=== PATIENT | female | born 1935 | race Caucasian/White ===

== ENCOUNTER 2017-12-09 20:05 | Emergency (ER) | payer MEDICARE, BC ==
[2017-12-09] MEDS ORDERED: Sodium Chloride 0.9% 1,000 ML IV ONE (20:35)
[2017-12-09] MEDS ORDERED: Sodium Chloride 0.9% 10 ML Syringe FLUSH PRN (20:44)
--- NOTE | 2017-12-10 04:02 | ER ---
DATE SEEN: 12/09/2017 REASON FOR VISIT: Renal failure. HISTORY OF PRESENT ILLNESS: This is an 82-year-old female who came to the walk- in clinic with complaints of fatigue, decreased appetite. Had a BMP that showed a creatinine of 2.9, her baseline is usually 1.4. She had one episode of nausea, but has otherwise not been eating or drinking well. REVIEW OF SYSTEMS: No fever or chills. No cough or cold symptoms. No chest pain. PAST MEDICAL HISTORY: Hypertension. MEDICATIONS: Reviewed. She is on Benicar. ALLERGIES: Reviewed. PHYSICAL EXAMINATION: VITAL SIGNS: Blood pressure is normal, pulse is 81, temperature 97.6. ENT: Negative. CHEST: Clear. SKIN: Mild dryness. EXTREMITIES: No edema. LAB STUDIES: Sodium is 133. After the 1 L of normal saline, her creatinine came down to 2.9. FINAL IMPRESSION: 1. Acute renal failure. 2. Hypertension. PLAN: One liter of normal saline was given. I discontinued Benicar. I advised her to come to the clinic, drink fluids daily, and repeat a basic profile on Monday morning with the PCP. TIME SEEN: 2100 hours. /[id number] DHAVAL/ARIC
== END 2017-12-09 22:20 | disposition home or self-care (01) ==
LOC: FB.ED 20:05
DX: N17.9 Acute kidney failure, unspecified (principal); I10 Essential (primary) hypertension
CPT/HCPCS: 36415; 80048; 81001; 82570; 84300; 84443; 85018; 99282; J7040; J7050; 99203; 99283; J7030

== ENCOUNTER 2024-05-17 17:35 | Observation (INO) | payer MEDICARE, BC ==
[2024-05-17] MEDS: amLODIPine 5 MG Tab PO ONE (19:30)
[2024-05-17 19:35] LABS: APPEARANCE,URINE CLEAR (CLEAR); BACTERIA,URINE FEW (NS); BILIRUBIN,URINE NEGATIVE (NEGATIVE); COLOR,URINE YELLOW (YELLOW); GLUCOSE,URINE NORMAL (NORMAL); KETONES,URINE NEGATIVE (NEGATIVE); LEUKOCYTE ESTERASE,URINE NEGATIVE (NEGATIVE); NITRITE,URINE NEGATIVE (NEGATIVE); OCCULT BLOOD,URINE NEGATIVE (NEGATIVE); PROTEIN,URINE NEGATIVE (NEGATIVE); RBC,URINE 0-5 (0-5); SQUAMOUS EPITHELIAL CELLS,UR FEW (NS,R,O); UROBILINOGEN,URINE NORMAL (NEGATIVE); WBC,URINE 0-5 (0-5)
[2024-05-17 19:38] LABS: BASOPHILS PERCENT AUTO 0.3 % (0.2-1.5); EOSINOPHILS ABSOLUTE AUTO 0.1 x10-3/uL (0.0-0.8); EOSINOPHILS PERCENT AUTO 1.2 % (0.6-8.1); HEMATOCRIT 40.3 % (34.2-48.2); HEMOGLOBIN 13.3 g/dL (11.4-15.5); LYMPHOCYTES ABSOLUTE AUTO 0.9 x10-3/uL (1.0-4.4); LYMPHOCYTES PERCENT AUTO 11.7 % (18.4-52.1); MEAN CORPUSCULAR HEMOGLOBIN 28.2 pg (23.9-33.9); MEAN CORPUSCULAR HGB CONC 32.9 g/dL (31.9-34.8); MEAN CORPUSCULAR VOLUME 85.6 fL (76.7-100.5); MEAN PLATELET VOLUME 7.4 fL (7.1-12.4); MONOCYTES ABSOLUTE AUTO 0.5 x10-3/uL (0.3-1.0); MONOCYTES PERCENT AUTO 6.5 % (4.4-15.7); NEUTROPHILS ABSOLUTE AUTO 6.5 x10-3/uL (1.5-6.3); NEUTROPHILS PERCENT AUTO 80.3 % (30.8-76.2); PLATELET COUNT,PLT 391 x10(3)uL (151-488); RED BLOOD CELL COUNT 4.71 x10(6)uL (3.60-5.20); RED CELL DISTRIBUTION WIDTH 14.3 % (12.3-16.5); WHITE BLOOD CELL COUNT,WBC 8.1 x10-3/uL (3.0-10.3)
[2024-05-17 19:40] LABS: BLOOD UREA NITROGEN,BUN 20 mg/dL (7-18); BUN/CREATININE RATIO 18.2 (9-20); CARBON DIOXIDE,CO2 28 mmol/L (21-32); CHLORIDE,CL 100 mmol/L (100-110); CREATININE 1.1 mg/dL (0.55-1.02); ESTIMATED GFR 48 mL/min (>60); GLUCOSE RANDOM 108 mg/dL (80-116); POTASSIUM,K 4.1 mmol/L (3.5-5.3); SODIUM,NA 138 mmol/L (135-145)
[2024-05-17 19:46] LABS: ALANINE AMINOTRANSFERASE,ALT 24 U/L (12-36); ALBUMIN 3.8 g/dL (2.9-4.5); ALKALINE PHOSPHATASE 91 IU/L (56-112); ASPARTATE AMNIOTRANSFERASE,AST 23 IU/L (5-25); BILIRUBIN TOTAL 0.3 mg/dL (0.1-1.3); PROTEIN TOTAL,TP 7.7 g/dL (6.0-8.0)
[2024-05-18] MEDS: hydrALAZINE 25 MG Tab PO SCH (16:30)
== END 2024-05-18 16:55 | disposition home or self-care (01) ==
LOC: FB.ED 17:35 → FB.MS 19:58
PROVIDERS: ADMIT Family Medicine; ATTEND Internal Medicine
DX: I16.0 Hypertensive urgency (principal); F03.B4 Unspecified dementia, moderate, with anxiety; I10 Essential (primary) hypertension; F41.9 Anxiety disorder, unspecified; F32.A Depression, unspecified; Z79.899 Other long term (current) drug therapy
CPT/HCPCS: 36415; 80053; 81001; 85025; 93005; 93010; 99285; A9270; G0378; 99223; 99238

== ENCOUNTER 2024-05-20 15:17 | Inpatient (IN) | payer MEDICARE, BC ==
[2024-05-20] MEDS ORDERED: Acetaminophen 325 MG Tab PO PRN (17:01)
[2024-05-20] MEDS ORDERED: Acetaminophen 650 MG Supp RECTAL PRN (17:01)
[2024-05-20 17:29] LABS: BASOPHILS PERCENT AUTO 0.4 % (0.2-1.5); EOSINOPHILS ABSOLUTE AUTO 0.1 x10-3/uL (0.0-0.8); EOSINOPHILS PERCENT AUTO 0.7 % (0.6-8.1); HEMOGLOBIN 13.4 g/dL (11.4-15.5); LYMPHOCYTES ABSOLUTE AUTO 0.9 x10-3/uL (1.0-4.4); LYMPHOCYTES PERCENT AUTO 11.7 % (18.4-52.1); MEAN CORPUSCULAR HEMOGLOBIN 27.6 pg (23.9-33.9); MEAN CORPUSCULAR HGB CONC 32.6 g/dL (31.9-34.8); MEAN CORPUSCULAR VOLUME 84.7 fL (76.7-100.5); MEAN PLATELET VOLUME 7.3 fL (7.1-12.4); MONOCYTES ABSOLUTE AUTO 0.4 x10-3/uL (0.3-1.0); MONOCYTES PERCENT AUTO 5.3 % (4.4-15.7); NEUTROPHILS ABSOLUTE AUTO 6.4 x10-3/uL (1.5-6.3); NEUTROPHILS PERCENT AUTO 81.9 % (30.8-76.2); PLATELET COUNT,PLT 384 x10(3)uL (151-488); RED BLOOD CELL COUNT 4.84 x10(6)uL (3.60-5.20); RED CELL DISTRIBUTION WIDTH 14.2 % (12.3-16.5); WHITE BLOOD CELL COUNT,WBC 7.8 x10-3/uL (3.0-10.3)
[2024-05-20 17:30] LABS: BLOOD UREA NITROGEN,BUN 22 mg/dL (7-18); CALCIUM 9.1 mg/dL (8.6-10.2); CARBON DIOXIDE,CO2 29 mmol/L (21-32); CHLORIDE,CL 98 mmol/L (100-110); EST CRCL DRUG DOSING (CG) 27.39 mL/min; ESTIMATED GFR 54 mL/min (>60); GLUCOSE RANDOM 130 mg/dL (80-116); SODIUM,NA 135 mmol/L (135-145)
[2024-05-20] MEDS: amLODIPine 5 MG Tab PO SCH (17:42)
[2024-05-20] MEDS: Heparin Sodium 5,000 Units/ML Vial SUBCUT SCH (17:54)
[2024-05-20] MEDS: QUEtiapine 25 MG Tab PO PRN (21:27)
[2024-05-21] MEDS: Calcium Carbonate 500 MG Tablet PO SCH (09:49)
[2024-05-21] MEDS: Heparin Sodium 5,000 Units/ML Vial SUBCUT SCH (09:55)
[2024-05-21] MEDS: LORazepam 0.5 MG Tab PO ONE (13:26)
[2024-05-22 06:34] LABS: BASOPHILS PERCENT AUTO 0.3 % (0.2-1.5); EOSINOPHILS ABSOLUTE AUTO 0.2 x10-3/uL (0.0-0.8); HEMATOCRIT 35.3 % (34.2-48.2); HEMOGLOBIN 11.4 g/dL (11.4-15.5); LYMPHOCYTES ABSOLUTE AUTO 1.4 x10-3/uL (1.0-4.4); MEAN CORPUSCULAR HEMOGLOBIN 27.5 pg (23.9-33.9); MEAN CORPUSCULAR HGB CONC 32.4 g/dL (31.9-34.8); MEAN CORPUSCULAR VOLUME 85.1 fL (76.7-100.5); MEAN PLATELET VOLUME 7.5 fL (7.1-12.4); MONOCYTES ABSOLUTE AUTO 0.6 x10-3/uL (0.3-1.0); MONOCYTES PERCENT AUTO 8.5 % (4.4-15.7); NEUTROPHILS ABSOLUTE AUTO 4.6 x10-3/uL (1.5-6.3); NEUTROPHILS PERCENT AUTO 68.2 % (30.8-76.2); PLATELET COUNT,PLT 314 x10(3)uL (151-488); RED BLOOD CELL COUNT 4.15 x10(6)uL (3.60-5.20); RED CELL DISTRIBUTION WIDTH 14.3 % (12.3-16.5); WHITE BLOOD CELL COUNT,WBC 6.8 x10-3/uL (3.0-10.3)
[2024-05-22 07:25] LABS: BLOOD UREA NITROGEN,BUN 21 mg/dL (7-18); CALCIUM 8.8 mg/dL (8.6-10.2); CARBON DIOXIDE,CO2 29 mmol/L (21-32); CHLORIDE,CL 103 mmol/L (100-110); EST CRCL DRUG DOSING (CG) 27.39 mL/min; ESTIMATED GFR 54 mL/min (>60); GLUCOSE RANDOM 82 mg/dL (80-116); POTASSIUM,K 4.1 mmol/L (3.5-5.3); SODIUM,NA 138 mmol/L (135-145)
== END 2024-05-23 15:17 | disposition home or self-care (01) | DRG 305 ==
LOC: FB.MS 15:17
PROVIDERS: ADMIT Internal Medicine; ATTEND Internal Medicine
DX: I16.0 Hypertensive urgency (principal); F69 Unspecified disorder of adult personality and behavior; H54.7 Unspecified visual loss; I10 Essential (primary) hypertension; E03.8 Other specified hypothyroidism; F32.A Depression, unspecified; F41.9 Anxiety disorder, unspecified; Z79.899 Other long term (current) drug therapy; Z90.49 Acquired absence of other specified parts of digestive tract
CPT/HCPCS: 36415; 70551; 80048; 82607; 84439; 84443; 85025; 97161-GP; 97165-GO; 99222; 99232; 99238; A9270-GY; J1644